=== PATIENT | female | born 2000 | race Asian ===

== ENCOUNTER 2024-06-04 13:32 | Outpatient (CLI) | payer OTHER ==
--- NOTE | 2024-06-04 14:47 | Ultrasound Report ---
PROCEDURE: Transvaginal INDICATIONS: AMENORRHEA TECHNIQUE: Real-time endovaginal scanning was performed of the pelvic organs, with image documentation. COMPARISON: None. FINDINGS: Uterus: 4.9 x 2.9 x 4.4 cm. Anteverted positioning. Endometrium measures 3 to 4 mm. Ovaries: Left ovary is not seen. Nonenlarged right ovary, with numerous follicles. Dominant follicula r cyst measures 1 cm. Other: Physiologic fluid is present. IMPRESSION: The left ovary was not seen. Nonenlarged right ovary. No significant uterine abnormality. Reviewed by: Mateus Snell MD on 06/04/2024 2:46 PM PDT Approved by: Mateus Snell MD on 06/04/2024 2:46 PM PDT Station ID: [id number]
== END 2024-06-04 13:33 | disposition home or self-care (01) ==
LOC: DI 13:32
PROVIDERS: ATTEND Physician Assistant Medical
DX: N91.2 Amenorrhea, unspecified (principal)